=== PATIENT | female | born 1995 | race Caucasian/White ===

== ENCOUNTER 2016-06-03 22:44 | Emergency (ER) | payer OTHER ==
[~2016-06-03] VITALS: Ht 167.6 cm; Wt 99.8 kg
[~2016-06-03 22:44] MED LIST: KEFLEX500 M1 PO; MUCINEX DM 30/61 TAB PO; Motrin,Rufen800 MG PO; NEXIUM40 MG PO; SINGULAIR10 M1 PO; ULTRAM50 MG PO
== END 2016-06-04 00:25 | disposition home or self-care (01) ==
LOC: ED 22:44
DX: S96.912A Strain of unspecified muscle and tendon at ankle and foot level, left foot, initial encounter (principal); S80.01XA Contusion of right knee, initial encounter; S20.219A Contusion of unspecified front wall of thorax, initial encounter; K21.9 Gastro-esophageal reflux disease without esophagitis; F17.200 Nicotine dependence, unspecified, uncomplicated; Z79.899 Other long term (current) drug therapy; W01.0XXA Fall on same level from slipping, tripping and stumbling without subsequent striking against object, initial encounter; Y93.01 Activity, walking, marching and hiking; Y92.89 Other specified places as the place of occurrence of the external cause; Y99.8 Other external cause status

== ENCOUNTER 2016-06-20 16:45 | Emergency (ER) | payer OTHER ==
[~2016-06-20] VITALS: Ht 165.1 cm; Wt 106.6 kg
[2016-06-20] MEDS ORDERED: AVPAK AZITHROM250 M1 PO (16:58)
[2016-06-20] MEDS ORDERED: MEDROL DOSEPAK4 MG PO (19:11)
== END 2016-06-20 19:10 | disposition home or self-care (01) ==
LOC: ED 16:45
DX: J40 Bronchitis, not specified as acute or chronic (principal); F17.200 Nicotine dependence, unspecified, uncomplicated

== ENCOUNTER 2016-07-05 16:30 | Emergency (ER) | payer OTHER ==
[~2016-07-05] VITALS: Ht 165.1 cm; Wt 107.5 kg
[~2016-07-05 16:30] MED LIST changes: +AVPAK AZITHROM250 M1 PO; +MEDROL DOSEPAK4 MG PO
== END 2016-07-05 18:29 | disposition home or self-care (01) ==
LOC: ED 16:30
DX: S40.021A Contusion of right upper arm, initial encounter (principal); F17.200 Nicotine dependence, unspecified, uncomplicated; Z79.899 Other long term (current) drug therapy; X58.XXXA Exposure to other specified factors, initial encounter; Y93.9 Activity, unspecified; Y92.9 Unspecified place or not applicable; Y99.9 Unspecified external cause status

== ENCOUNTER 2016-07-08 16:26 | Emergency (ER) | payer OTHER ==
[~2016-07-08] VITALS: Wt 107.5 kg
[2016-07-08] MEDS ORDERED: TRI-SPRINTEC 281 TA2 PO (16:32)
== END 2016-07-08 16:55 | disposition home or self-care (01) ==
LOC: ED 16:26
DX: L55.1 Sunburn of second degree (principal); R03.0 Elevated blood-pressure reading, without diagnosis of hypertension; F17.200 Nicotine dependence, unspecified, uncomplicated; K21.9 Gastro-esophageal reflux disease without esophagitis; Z79.899 Other long term (current) drug therapy

== ENCOUNTER 2016-10-26 16:41 | Emergency (ER) | payer OTHER ==
[~2016-10-26] VITALS: Ht 165.1 cm; Wt 111.1 kg
[~2016-10-26 16:41] MED LIST changes: +TRI-SPRINTEC 281 TA2 PO
[2016-10-26 17:30] LABS: BILIRUBIN NEGATIVE (NEGATIVE); BLOOD NEGATIVE (NEGATIVE); CLARITY SL CLOUDY (CLEAR); COLOR YELLOW (YELLOW); GLUCOSE NEGATIVE (NEGATIVE); KETONE NEGATIVE (NEGATIVE); LEUKO ESTERASE NEGATIVE (NEGATIVE); NITRITE NEGATIVE (NEGATIVE); SPECIFIC GRAVITY 1.025 (1.005-1.030); UROBILINOGEN 0.2 E.U./dl (0.2-1.0)
[2016-10-26 17:38] LABS: WBC 0-2 wbc/hpf (0-5)
[2016-10-26 17:39] LABS: BACTERIA 2+; MUCOUS TRACE
[2016-10-26] MEDS ORDERED: MEDROL DOSEPAK4 MG PO (17:51)
[2016-10-26] MEDS ORDERED: MACROBID100 M1 PO (17:52)
== END 2016-10-26 22:20 | disposition home or self-care (01) ==
LOC: ED 16:41
PROVIDERS: Physician Assistant
DX: R30.0 Dysuria (principal); L24.9 Irritant contact dermatitis, unspecified cause; F17.200 Nicotine dependence, unspecified, uncomplicated; Z79.899 Other long term (current) drug therapy

== ENCOUNTER 2017-01-28 17:59 | Emergency (ER) | payer OTHER ==
[~2017-01-28] VITALS: Ht 165.1 cm; Wt 107.5 kg
[~2017-01-28 17:59] MED LIST changes: +MACROBID100 M1 PO
[2017-01-28] MEDS ORDERED: PREDNISONE10 MG PO (18:17)
[2017-01-28] MEDS ORDERED: FLONASE ALLERG9.9 ML NAS (18:17)
[2017-01-28] MEDS ORDERED: CLARITIN10 MG PO (18:17)
== END 2017-01-28 18:45 | disposition home or self-care (01) ==
LOC: ED 17:59
DX: J02.9 Acute pharyngitis, unspecified (principal); R03.0 Elevated blood-pressure reading, without diagnosis of hypertension; F17.200 Nicotine dependence, unspecified, uncomplicated; Z79.899 Other long term (current) drug therapy

== ENCOUNTER 2020-09-24 19:13 | Emergency (ER) | payer OTHER ==
[~2020-09-24] VITALS: Ht 165.1 cm; Wt 165.6 kg
[~2020-09-24 19:13] MED LIST changes: +CLARITIN10 MG PO; +FLONASE ALLERG9.9 ML NAS; +PREDNISONE10 MG PO
[2020-09-24 21:02] LABS: BASO % 0.3 % (0.0-1.0); EOS # 0.2 10*3/uL (0.0-0.4); EOS % 2.3 % (1.0-4.0); HEMATOCRIT 34.7 % (37.0-47.0); LYMPH # 2.5 10*3/uL (1.3-4.4); LYMPH % 26.1 % (27.0-41.0); MEAN CELL VOLUME 81.6 fl (81.0-99.0); MEAN CORPUSCULAR HGB 25.9 pg (27.0-31.0); MEAN CORPUSCULAR HGB CONC 31.7 g/dl (33.0-37.0); MEAN PLATELET VOLUME 9.5 fl (9.6-12.3); MONO # 0.6 10*3/uL (0.1-1.0); MONO % 6.3 % (3.0-9.0); NEUT # 6.2 10*3/uL (2.3-7.9); NEUT % 64.7 % (47.0-73.0); PLATELET COUNT AUTOMATED 347 10*3/uL (130-400); RED BLOOD COUNT 4.25 10*6/uL (4.10-5.10); RED CELL DISTRI WIDTH 13.3 % (0-14.5); WHITE BLOOD COUNT 9.6 10*3/uL (4.8-10.8)
[2020-09-24 21:03] LABS: BILIRUBIN Negative (Negative); BLOOD Trace-Lysed (Negative); CLARITY Clear (Clear); COLOR Yellow (Yellow); GLUCOSE Negative (Negative); KETONE Trace (Negative); LEUKO ESTERASE Negative (Negative); NITRITE Negative (Negative); PH 5.5 (4.5-8.0); SPECIFIC GRAVITY 1.025 (1.001-1.030)
[2020-09-24 21:09] LABS: BACTERIA 1+; MUCOUS TRACE; WBC 0-2 wbc/hpf (0-5)
[2020-09-24 21:18] LABS: ALBUMIN 3.8 gm/dl (3.1-4.5); ALKALINE PHOSPHATASE 68 U/L (45-117); BUN 9 mg/dl (7-24); CHLORIDE 108 mmol/L (98-107); CREATININE 0.82 mg/dL (0.55-1.02); POTASSIUM 3.8 mmol/L (3.5-5.1); SGOT/AST 39 IU/L (3-35); SGPT/ALT 55 U/L (12-78); SODIUM 141 mmol/L (136-145); TOTAL PROTEIN 7.6 gm/dL (6.4-8.2)
== END 2020-09-24 23:47 | disposition home or self-care (01) ==
LOC: ED 19:13
PROVIDERS: Emergency Medicine
DX: S30.1XXA Contusion of abdominal wall, initial encounter (principal); K21.9 Gastro-esophageal reflux disease without esophagitis; Z79.899 Other long term (current) drug therapy; W01.0XXA Fall on same level from slipping, tripping and stumbling without subsequent striking against object, initial encounter; Y93.89 Activity, other specified; Y92.89 Other specified places as the place of occurrence of the external cause; Y99.8 Other external cause status